=== PATIENT | female | born 1960 | race Caucasian/White ===

== ENCOUNTER 2017-05-30 10:28 | Day surgery (SDC) | payer BC ==
[~2017-05-30 10:28] MED LIST: Buffered Lidocaine 0.9% SYRIN* 5 ML/SYR SYRINGE INTRADERM ONE
[2017-05-30] MEDS ORDERED: Buffered Lidocaine 0.9% SYRIN* 5 ML/SYR SYRINGE ONE (10:29)
[2017-05-30] MEDS ORDERED: Bupivacaine 0.25% SDV* 30 ML ONE (10:48)
[2017-05-30] MEDS ORDERED: Lidocaine 1% MPF wEPI 200,000* 30 ML SDV ONE (10:48)
[2017-05-30] MEDS ORDERED: Bupivacaine 0.5% SDV PF* 10-30ML VIAL ONE ×2 (10:48→10:49)
[2017-05-30] MEDS ORDERED: ceFAZolin 2 GM PREMIX (*) 2 GM/50 ML BAG IVPB ONE (10:59)
[2017-05-30] MEDS ORDERED: Naloxone* 0.4 MG/ML 1 ML VIAL IV PRN (11:12)
[2017-05-30] MEDS ORDERED: Midazolam* 1 MG/ML 2 ML VIAL (2 MG) ONE (13:49)
[2017-05-30] MEDS ORDERED: fentaNYL* 50 MCG/ML 2 ML VIAL (100 MCG VIAL) ONE (13:49)
[2017-05-30] MEDS ORDERED: Lidocaine 2% PF * 5 ML VIAL ONE (14:22)
[2017-05-30] MEDS ORDERED: Propofol* 10 MG/ML 20 ML BTL IV PUSH ONE (14:22)
[2017-05-30] MEDS ORDERED: oxyCODONE/Acetamin 5/325 MG* TAB PO PRN (15:13)
[2017-05-30 15:26] VITALS: BP 124/77
--- NOTE | 2017-05-31 13:33 | OP ---
CC: Kinana Mcdaniel MD * DATE OF OPERATION: 05/30/17 - [facility] DATE OF : 56 SURGEON: Thong Aguilar MD TRIMMING INSPECTOR: KARINA Whitehead ANESTHESIOLOGIST: Daniel Alonzo DO ANESTHESIA: Local with MAC. PRE-OP DIAGNOSIS: Right inguinal hernia. POST-OP DIAGNOSIS: Right inguinal hernia. OPERATIVE PROCEDURE: Open repair of right inguinal hernia with mesh. ESTIMATED BLOOD LOSS: Minimal. IV FLUIDS: Crystalloids. SPECIMEN: None. DRAINS: None. COMPLICATIONS: None. COUNTS: Instrument, needle, and sponge counts were correct. DESCRIPTION OF PROCEDURE: The patient was brought to the operating room and placed on the table supine. Sequential compression devices were placed on both lower extremities. Intravenous sedation was administered. The patient was prepped and draped in the usual sterile fashion. Time-out was performed. Local anesthetic was infiltrated into the skin and soft tissue in the right groin. An oblique incision was created to divide the skin and subcutaneous tissues were divided with cautery. External oblique aponeurosis was identified and opened along the line of its fibers through the superficial ring. The round ligament was identified and this was inseparable from an indirect inguinal hernia sac. The ilioinguinal nerve was identified and preserved in lateral direction. ltimately, the sac was entered, however, could not be dissected free from the round ligament. Therefore, the round ligament was divided and it was tied off proximally and distally with 2-0 Vicryl suture. The repair was then performed with a polypropylene mesh patch, which was cut to fit the right inguinal canal, securing this with 2-0 Vicryl to the pubic tubercle, shelving edge of the inguinal ligament, and to the conjoint tendon with interrupted suture. The tail of the mesh was tucked beneath the external oblique laterally and this external oblique aponeurosis was closed with 2-0 Vicryl running. The ilioinguinal nerve was returned to its anatomic position, and after the external oblique aponeurosis was closed, Cassandra's was closed with 3-0 Vicryl in interrupted fashion. The skin was closed with 4-0 Monocryl in subcuticular fashion. Steri-Strips were applied with dressing. The patient tolerated the procedure well, was awakened and transferred to Recovery in stable condition. [id number]/[facility] #: [id number] REN
== END 2017-05-30 15:27 | disposition home or self-care (01) ==
LOC: OR 10:28
PROVIDERS: ATTEND Surgery
DX: K40.90 Unilateral inguinal hernia, without obstruction or gangrene, not specified as recurrent (principal)
CPT/HCPCS: C1781; J0690; J2001; J2250; J2704; J3010

== ENCOUNTER 2017-08-16 07:11 | Emergency (ER) | payer BC ==
--- OUTSIDE RECORDS SUMMARY | 2017-08-16 07:18 | XMS REPORT ---
:1960 External Reference #:[id number] Author Organization [employer] Address [address] [address] Phone [phone] Care Team Providers Name Role Phone Kianna Mcdaniel MD Primary Care Physician Unavailable Payers Type Date Identification Numbers Payment Provider Subscriber Commercial Policy Number: [id number] [facility] Thong Rogers PayID: [id number] [address] [place] [address] Problems Date Description Provider Status Onset: 07/26/2017 Localized, secondary osteoarthritis Naida Hernández M.D. 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 ETOH Use Drinks 1 Alcoholic Beverage Per Day Smoking Patient has never smoked Exercise Type/Frequency Exercises sporadically Allergies, Adverse Reactions, Alerts Date Description Reaction Status Severity Comments 01/20/2015 Morphine active nausea Medications Medication Date Status Form Strength Qnty SIG Indications Ordering Provider Lipoflavonoid Active Tablet 2 tabs Unknown 000 once daily Centrum Silver Active Tablets Adult 50 1 tab Unknown Adult 50+ 000 daily Krill Oil Active Capsules once a Unknown 000 day Osteobiflex Active Unknown 000 Ranitidine HCL 0 Hx 150mg twice a Unknown 000 day Nexium OTC 0 Hx daily Unknown 000 Calcium Magnesium 0 Hx daily Unknown 000 Glucosamine 0 Hx 1500mg Unknown Chondroitin 000 - daily 018 Metafolin/Methyl Hx B12/B6 Unknown 000 - one tab daily 018 Vitamin D 0 Hx Capsules 1000Unit 1 by Unknown (Cholecalciferol) 000 - mouth every 018 day Medications Administered in Office Medication Date Status Form Strength Qnty SIG Indications Ordering Provider Technetium TC Administered Injection Mike Garcia 99M 015 Brand, M.DMinerva Tetrofosmin, Per Unit Dose Up To 40 Millicuries Technetium TC Administered Injection Rosemary Sorenson, 99M 015 PA Tetrofosmin, Per Unit Dose Up To 40 Millicuries Depomedrol Administered Injection Dirk Sujit, 40MG 011 M.D. Vital Signs Date Vital Result Comment 08/11/2017 Height 63.5 inches 5'3.50" Weight 119.00 lb Heart Rate 68 /min BP Systolic Sitting 96 mmHg BP Diastolic Sitting 60 mmHg Respiratory Rate 16 /min Pain Level 5 BMI (Body Mass Index) 20.7 kg/m2 07/26/2017 Height 63.5 inches 5'3.50" Weight 117.00 lb Heart Rate 68 /min BP Systolic 116 mmHg BP Diastolic 70 mmHg Pain Level 7 BMI (Body Mass Index) 20.4 kg/m2 06/07/2017 Heart Rate 76 /min Respiratory Rate 16 /min Body Temperature 97.8 F 05/12/2017 Height 63 inches 5'3" Weight 115.00 lb Heart Rate 72 /min BP Systolic 98 mmHg BP Diastolic 62 mmHg Respiratory Rate 16 /min Body Temperature 97.3 F BMI (Body Mass Index) 20.4 kg/m2 01/24/2011 Height 63 inches 5'3" Weight 112.00 lb Heart Rate 66 /min BP Systolic 91 mmHg BP Diastolic 61 mmHg BMI (Body Mass Index) 19.8 kg/m2 Results Test Date Test Result H/L Range Note CBC Auto Diff 08/02/2017 White Blood Count 6.4 10^3/uL 3.5-10.8 Red Blood Count 4.38 10^6/uL 4.0-5.4 Hemoglobin 13.7 g/dL 12.0-16.0 Hematocrit 41 % 35-47 Mean Corpuscular Volume 94 fL 80-97 Mean Corpuscular Hemoglobin 31 pg 27-31 Mean Corpuscular HGB Conc 33 g/dL 31-36 Red Cell Distribution Width 14 % 10.5-15 Platelet Count 334 10^3/uL 150-450 Mean Platelet Volume 7.9 um3 7.4-10.4 Abs Neutrophils 3.1 10^3/uL 1.5-7.7 Abs Lymphocytes 2.8 10^3/uL 1.0-4.8 Abs Monocytes 0.4 10^3/uL 0-0.8 Abs Eosinophils 0.1 10^3/uL 0-0.6 Abs Basophils 0 10^3/uL 0-0.2 Abs Nucleated RBC 0 10^3/uL Granulocyte % 48.0 % 38-83 Lymphocyte % 43.9 % 25-47 Monocyte % 6.3 % 0-7 Eosinophil % 1.2 % 0-6 Basophil % 0.6 % 0-2 Nucleated Red Blood Cells % 0.1 Laboratory test finding 08/02/2017 C Reactive Protein < 1.00 mg/L &lt ; 5.00 1 Erythrocyte Sed Rate 5 mm/Hr 0-30 1 Acute inflammation: >10.00 Procedures Date CPT Code Description Status 05/30/2017 40461 Repair Hernia Inguinal > 5Yrs, Reducible Completed 05/30/2017 17768 Repair Hernia Inguinal > 5Yrs, Reducible Completed 01/23/2015 28071 Stress Test Completed 01/23/2015 83707 Myocardial Perfusion Imaging Tomographic (Spect) Completed Multiple Studies 01/23/2015 16046 Myocardial Perfusion Imaging Tomographic (Spect) Completed Multiple Studies 02/02/201193389 Inject/Drain Joint/Bursa Major Completed 01/24/2011 08481 Rad Exam; Both Knees, Standing Ap Completed 01/24/2011 18646 Rad Exam; Knee, Ap&L Completed Encounters Type Date Location Provider CPT E/M Dx Office Visit 07/26/2017 [facility] M.D. 66537 M17.31 9:00a [facility] M25.561 M25.461 Office Visit 05/12/2017 8:45a [facility] [place], [address] K40.90 Director Of Golf FACS Office Visit 02/02/2011 9:00a [facility] M.D. 29696 727.51 [facility] 727.43 716.96 Office Visit 01/24/2011 2:30p [facility] M.D. 88443 716.96 [facility].. 727.40 Plan of Care Future Appointment(s):08/22/2017 7:30 am - Clifton Wright PA-C at [facility].08/22/2017 7:30 am - KARINA Blair at [facility].08/22/2017 7:30 am - Naida Hernández M.D. at [facility].09/06/2017 10:30 am - Naida Hernández M.D. at [facility].08/11/2017 - Naida Hernández M.D.M17.31 Unilateral post- traumatic osteoarthritis, right kneeFollow up:Follow up: 10-14 days post opM25.561 Pain in right kneeM25.461 Effusion, right knee
--- OUTSIDE RECORDS SUMMARY | 2017-08-16 07:18 | XMS REPORT ---
:1960 External Reference #:[id number] Author Organization [employer] Address [address] [address] Phone [phone] Care Team Providers Name Role Phone Kianna Mcdaniel MD Primary Care Physician Unavailable Payers Type Date Identification Numbers Payment Provider Subscriber Commercial Policy Number: [id number] [facility] Thong Rogers PayID: [id number] [address] [place] [address] Problems Date Description Provider Status Onset: 07/26/2017 Localized, secondary osteoarthritis Naida Hernández M.D. 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 Vital Signs Date Vital Result Comment 07/26/2017 Height 63.5 inches 5'3.50" Weight 117.00 [...] BMI (Body Mass Index) 19.8 kg/m2 Results Description No Information Procedures Date CPT Code Description Status 05/30/2017 75114 Repair Hernia Inguinal > 5Yrs, Reducible Completed 05/30/2017 51213 Repair Hernia Inguinal > 5Yrs, Reducible Completed 01/23/2015 59668 Stress Test Completed 01/23/2015 93678 Myocardial Perfusion Imaging Tomographic (Spect) Completed Multiple Studies 01/23/2015 63411 Myocardial Perfusion Imaging Tomographic (Spect) Completed Multiple Studies 02/02/2011 Inject/Drain Joint/Bursa Major Completed 01/24/2011 06653 Rad Exam; Both Knees, Standing Ap Completed 01/24/2011 13528 Rad Exam; Knee, Ap&L Completed Encounters Type Date Location Provider CPT E/M Dx Office Visit 05/12/2017 [facility] [place], [address] K40.90 8:45a [employer] Worker FACS Office Visit 02/02/2011 [facility] M.D. 15720 727.51 9:00a [facility] 727.43 716.96 Office Visit 01/24/2011 2:30p [facility] M.D. 67734 716.96 [facility] 727.40 Plan of Care Future Appointment(s):09/06/2017 10:30 am - Naida Hernández M.D. at [facility]08/11/2017 8:30 am - Naida Hernández M.D. at [facility]07/26/2017 - Naida Hernández M.D.M25.561 Pain in right kneeNew Xrays:Knee 3 Views RTFollow up:Follow up: 10-14 days euhhsqM02.461 Effusion, right kneeM17.31 Unilateral post-traumatic osteoarthritis, right knee
[2017-08-16 07:24] VITALS: BP 109/72
[2017-08-16] MEDS ORDERED: Fluorescein Sod TOPICAL 0.6* 0.6 MG TEST OPHTHALMIC ONE (07:28)
--- NOTE | 2017-08-16 07:50 | UC ---
Eye Complaint HPI - HPI Summary HPI Summary: 57 yo female developed left eye fb sensation yesterday today awoke with mild eye discomfort and lids matted shut no longer has FB sensation no itch no URI symptoms no photophobia - History of Current Complaint Chief Complaint: UCEye Stated Complaint: EYE COMPLAINT Time Seen by Provider: 08/16/17 07:25 Hx Obtained From: Patient Onset/Duration: Gradual Onset, Lasting Hours Timing: Constant Severity Initially: Mild Severity Currently: Mild Pain Intensity: 3 Pain Scale Used: 0-10 Numeric Location of Injury: Conjunctiva Character: Dull Aggravating Factor(s): Nothing Associated Signs And Symptoms: Positive: Drainage (Purulent) - Allergies/Home Medications Allergies/Adverse Reactions: Allergies Allergy/AdvReac Type Severity Reaction Status Date / Time morphine AdvReac Mild Nausea And Verified 08/16/17 07:23 Vomiting PMH/Surg Hx/FS Hx/Imm Hx Previously Healthy: Yes - DJD - Surgical History Surgical History: Yes Surgery Procedure, Year, and Place: 1976 LEFT KNEE [place]. 1980 & 1981 RT KNEE [place]. 1987 & 1991 C-SECTIONS [place]. 2009 LEFT OSTEOTOMY, PLATE INSERTION [place] - Family History Known Family History: Positive: Hypertension, Other - Yes- HLD - Social History Alcohol Use: Daily Alcohol Amount: 1 DRINK Substance Use Type: None Smoking Status (MU): Never Smoked Tobacco Have You Smoked in the Last Year: No - Immunization History Most Recent Tetanus Shot: UTD Review of Systems Constitutional: Negative Skin: Negative Eyes: Eye Redness, Photophobia ENT: Negative Respiratory: Negative Cardiovascular: Negative Gastrointestinal: Negative Genitourinary: Negative Motor: Negative Neurovascular: Negative Musculoskeletal: Arthralgia Neurological: Negative Psychological: Negative All Other Systems Reviewed And Are Negative: Yes Physical Exam Triage Information Reviewed: Yes Appearance: Well-Appearing, No Pain Distress, Well-Nourished Vital Signs: Initial Vital Signs Temp 98.6 F 08/16/17 07:17 Pulse 65 08/16/17 07:17 Resp 18 08/16/17 07:17 BP 109/72 08/16/17 07:17 Pulse Ox 100 08/16/17 07:17 Vital Signs Reviewed: Yes Eyes: Positive: Conjunctiva Inflamed, Discharge, Other: - neg flourescein staining ENT: Positive: Hearing grossly normal, Uvula midline. Negative: Nasal congestion, Nasal drainage, Trismus, Muffled voice Neck: Positive: Supple, Nontender, No Lymphadenopathy Respiratory: Positive: Lungs clear, Normal breath sounds, No respiratory distress, No accessory muscle use Cardiovascular: Positive: RRR, No Murmur Musculoskeletal: Positive: ROM Intact, No Edema Neurological: Positive: Alert Psychological Exam: Normal Skin Exam: Normal Eye Complaint Course/Dx - Differential Dx/Diagnosis Provider Diagnoses: conjunctivitis (L) Discharge - Sign-Out/Discharge Documenting (check all that apply): Discharge - Discharge Plan Condition: Stable Disposition: HOME Prescriptions: Polymyx/Trimethoprim OPTH* [Polytrim OPHTH*] 1 - 2 drop BOTH EYES QID #1 btl Patient Education Materials: Conjunctivitis (ED) Referrals: Milton Guevara MD [Medical Doctor] - 2 Days (if needed) Kianna Mcdaniel MD [Primary Care Provider] - Additional Instructions: I suggest you also use ZADITOR eye drops (OTC) see senior procurement specialist if foreign body sensation returns or if you develop worsening eye discomfort - Billing Disposition and Condition Condition: STABLE Disposition: HOME
== END 2017-08-16 07:47 | disposition home or self-care (01) ==
LOC: UCEAST 07:11
DX: H10.32 Unspecified acute conjunctivitis, left eye (principal); Z88.5 Allergy status to narcotic agent
CPT/HCPCS: 99212; G0463

== ENCOUNTER 2017-08-22 05:56 | Inpatient (IN) | payer BC ==
--- NOTE | 2017-08-11 21:05 | HP ---
PREOPERATIVE HISTORY AND PHYSICAL: DATE OF SURGERY: 08/22/17 DATE OF OFFICE VISIT: 08/11/17 ATTENDING SURGEON: Naida Hernández MD * (DICTATED BY KARINA MCGILL) PROCEDURE: Right total knee replacement. CHIEF COMPLAINT: Right knee pain. HISTORY OF PRESENT ILLNESS: Ms. Rogers is a 57-year-old female who presents to clinic for right knee pain due to severe end-stage osteoarthritis. She has failed conservative measures and therefore agreed to undergo a right total knee replacement with Dr. Hernández on 08/22/17. PAST MEDICAL HISTORY: Osteoarthritis. PAST SURGICAL HISTORY: 1. Bilateral knee surgeries x4. 2. She had a right knee ACL reconstruction. 3. Left knee ACL reconstruction. 4. Right knee partial meniscectomy. 5. Left tibial tubercle osteotomy in 2009. 6. x2. 7. Basal cell carcinoma excision. 8. Two hiatal hernia repairs. Patient denies prior complications with anesthesia. MEDICATIONS: 1. Lipoflavonoid 2 tabs once daily. 2. Centrum Silver 50+ one tab daily. 3. Krill Oil once daily. 4. Osteo Bi-Flex 1 daily. ALLERGIES: MORPHINE. FAMILY HISTORY: Positive for parental heart disease and mom with Alzheimer's. She denies family history of DVT or PE. SOCIAL HISTORY: She lives with her . 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 She denies tobacco use or illegal drug use. She reports occasional alcohol consumption. She is right-hand dominant. She is normally an independent ambulator. REVIEW OF SYSTEMS: A 14-point review of systems was reviewed with the patient, positive for current, complaint otherwise negative. Denies fever chills, chest pain, shortness of breath, history of bleeding disorder, history of DVT or PE, history of hep C or HIV. PHYSICAL EXAMINATION GENERAL: Well-developed, well-nourished, 57-year-old female, in no acute distress. VITAL SIGNS: Height 63.5, weight 119, pulse 68, blood pressure 96/60, respiratory rate 16, BMI 20.7. HEENT: Normocephalic, atraumatic, PERRLA. Throat clear. NECK: Supple. PULMONARY: Lungs clear to auscultation bilaterally. No wheezing, rhonchi, or rales. CARDIO: Regular rate and rhythm, S1, S2. No murmurs, gallops, or rubs. No edema. ABDOMEN: Positive bowel sounds. Soft, nontender. NEUROLOGICAL: Alert and oriented x3. Cranial nerves grossly intact. Sensation intact to light touch. MUSCULOSKELETAL: Right lower extremity skin is intact. No abrasions or open wounds. No palpable masses or lymph nodes. Moderate effusion of the knee. Range of motion is 5 to 140. Patellofemoral crepitus with range of motion. Varus and valgus stress shows mild MCL incompetence. No hyperreflexia. +5/5 strength to dorsiflexion and plantar flexion, +2 DP pulse. Sensation intact to light touch distally. STUDIES: Multi-view x-rays of the right knee revealed tricompartmental end- stage degenerative osteoarthritis with [id number] contact medial and lateral compartment with joint space narrowing, osteophyte formation and subchondral sclerosis in the tricompartments. IMPRESSION: Right knee end-stage osteoarthritis. PLAN/RECOMMENDATIONS: The patient is scheduled to undergo a right total knee replacement with Dr. Hernández on 08/22/17. She will return to office 10 to 14 days postop for followup and suture removal. Percocet will be used for postop pain management. KARINA MCGILL [id number]/[facility] #: [id number] MTDBilly
[~2017-08-22 05:56] MED LIST changes: +DiMENhydriNATE IV* 50 MG/ML VIAL IV PUSH PRN; +HYDROmorphone INJ* 1 MG/ML CARPUJECT SYRINGE IV PRN; +Naloxone* 0.4 MG/ML 1 ML VIAL IV PRN; +PROCHLORPERAZINE INJ 5 MG/ML 2 ML VIAL IV PRN; +fentaNYL* 50 MCG/ML 2 ML VIAL (100 MCG VIAL) IV PRN; +oxyCODONE/Acetamin 5/325 MG* TAB PO PRN
[2017-08-22] MEDS ORDERED: Famotidine IV* 10 MG/ML 2 ML (20 mg) IV ONE (06:00)
[2017-08-22] MEDS ORDERED: Scopolamine 1.5 mg* PATCH TRANSDERM ONE (06:00)
[2017-08-22] MEDS ORDERED: Gabapentin CAP(*) 300 MG PO ONE (06:00)
[2017-08-22] MEDS ORDERED: Gabapentin CAP(*) 300 MG ONE (06:08)
[2017-08-22] MEDS ORDERED: Scopolamine 1.5 mg* PATCH ONE (06:08)
[2017-08-22] MEDS ORDERED: ceFAZolin 2 GM PREMIX (*) 2 GM/50 ML BAG IVPB ONE (06:08)
[2017-08-22] MEDS ORDERED: Famotidine TAB* 20 MG ONE (07:00)
[2017-08-22] MEDS ORDERED: Midazolam* 1 MG/ML 10 ML VIAL (10 MG) ONE (07:06)
[2017-08-22] MEDS ORDERED: fentaNYL* 50 MCG/ML 2 ML VIAL (100 MCG VIAL) ONE (07:06)
[2017-08-22] MEDS ORDERED: Bupivacaine 0.5%* 50 ML VIAL ONE ×2 (07:08→09:13)
[2017-08-22] MEDS ORDERED: Bupivacaine-MPF SPINAL* 7.5 MG/2 ML AMP ONE (07:09)
[2017-08-22] MEDS ORDERED: Bisacodyl SUPP* 10 MG SUPP PR PRN (07:33)
[2017-08-22] MEDS ORDERED: Magnesium Hydroxide LIQ* 30 ML UDC PO PRN (07:33)
[2017-08-22] MEDS ORDERED: Cyclobenzaprine TAB* 10 MG PO PRN (07:33)
[2017-08-22] MEDS ORDERED: Polyethylene Glycol 3350* 17 GM PACKET PO PRN (07:33)
[2017-08-22] MEDS ORDERED: Acetaminophen TAB* 325 MG PO PRN (07:33)
[2017-08-22] MEDS ORDERED: Ondansetron TAB* 4 MG PO PRN (07:33)
[2017-08-22] MEDS ORDERED: oxyCODONE/Acetamin 5/325 MG* TAB PO PRN (07:33)
[2017-08-22] MEDS ORDERED: diPHENhydraMINE IV* 50 MG/ML 1 ml VIAL (BENADRYL) IV PRN (07:33)
[2017-08-22] MEDS ORDERED: HYDROmorphone INJ* 2 MG/ML CARPUJECT SYRINGE IV SLOW PU PRN (07:36)
[2017-08-22] MEDS ORDERED: Phenylephrine INJ* 10 MG/ML 1 ML VIAL (10 MG) ONE (08:59)
[2017-08-22] MEDS ORDERED: Ondansetron INJ* 2 MG/ML VIAL ONE (08:59)
[2017-08-22] MEDS ORDERED: Propofol* 500 MG/50 ML BTL ONE (08:59)
[2017-08-22] MEDS ORDERED: Dexamethasone IV* 4 MG/ML 1 ML (4 MG) ONE (08:59)
[2017-08-22] MEDS ORDERED: Lidocaine 2% PF * 5 ML VIAL ONE (08:59)
[2017-08-22] MEDS ORDERED: Bupivacaine 0.25% SDV* 30 ML ONE (08:59)
[2017-08-22] MEDS ORDERED: EPHEDrine (Pressors)* 50 MG/ML VIAL ONE (09:13)
--- NOTE | 2017-08-22 12:39 | RAD ---
HISTORY: Status post right knee arthroplasty COMPARISONS: July 26, 2017 VIEWS: 2, Frontal and lateral views of the right knee FINDINGS: BONE DENSITY: Normal. BONES: The patient is status post right knee arthroplasty. There is no hardware failure or osteolysis. JOINTS: The patient is status post right knee arthroplasty. ALIGNMENT: There is no dislocation. SOFT TISSUES: Unremarkable. OTHER FINDINGS: There is post surgical change to the soft tissue. IMPRESSION: STATUS POST RIGHT KNEE ARTHROPLASTY
[2017-08-22] MEDS: Polymyx/Trimethoprim OPTH* 10 ML BTL BOTH EYES SCH ×3 (15:28→20:25)
[2017-08-22] MEDS: Docusate CAP* 100 MG PO SCH ×2 (15:28→22:30)
[2017-08-22] MEDS: Magnesium Hydroxide LIQ* 30 ML UDC PO SCH ×2 (15:28→22:30)
[2017-08-22] MEDS: oxyCODONE/Acetamin 5/325 MG* TAB PO PRN ×2 (16:09→20:23)
[2017-08-22] MEDS: ceFAZolin 1 GM in Dextrose (*) 1 GM/50 ML BAG IVPB SCH (16:51)
[2017-08-22] MEDS: Ondansetron INJ* 2 MG/ML VIAL IV PRN (16:59)
[2017-08-22] MEDS ORDERED: Warfarin TAB(*) 6 MG PO ONE (17:00)
[2017-08-22] MEDS: oxyCODONE TAB* 5 MG TAB PO PRN (22:32)
[2017-08-23] MEDS: ceFAZolin 1 GM in Dextrose (*) 1 GM/50 ML BAG IVPB SCH ×2 (00:46→08:25)
[2017-08-23] MEDS: oxyCODONE/Acetamin 5/325 MG* TAB PO PRN ×3 (02:36→16:58)
--- NOTE | 2017-08-23 03:38 | OP ---
DATE OF OPERATION: 08/22/17 - ROOM #341 DATE OF : 56 ATTENDING SURGEON: Naida Hernández MD JOURNEYMAN MOLDER: KARINA Nguyen. Ms. Salmeron did help throughout the procedure with preparation of the leg, wound retraction, manipulation of the knee, and wound closure. ANESTHESIOLOGIST: Dr. Easley. ANESTHESIA: Spinal. PRE-OP DIAGNOSIS: Severe end-stage degenerative osteoarthritis of the right knee joint. POST-OP DIAGNOSIS: Severe end-stage degenerative osteoarthritis of the right knee joint. OPERATIVE PROCEDURE: Right total knee arthroplasty. TOURNIQUET TIME: 58 minutes. COMPLICATIONS: None. SPECIMEN: Multiple culture swabs sent to Microbiology. Bone and cartilage from the right knee joint sent to Pathology. HARDWARE USED: This is a cemented Castillo and Nephew total knee arthroplasty hardware. Two packages of Simplex bone cement were used. For the femur, an Oxinium size 5 narrow posterior stabilized Legion femoral component. For the tibia, a right size 3 tibial base plate Mirta II. For the insert, an 11-mm posterior stabilized articular insert, size 3/4. For the patella, a 32-mm 3- peg all poly patella. BRIEF HISTORY AND INDICATIONS: Ms. Rogers is a 57-year-old female with years of increasingly severe right knee pain. She failed conservative treatment with anti- inflammatories, pain medication, intra-articular injections , and physical therapy. Due to continued pain and decreased quality of life, she elected to undergo right total knee arthroplasty. Radiographs confirmed [id number] arthritis. Informed consent was obtained from the patient. She understood the risks of the surgery included, but were not limited to bleeding, infection, damage to nearby structures, continued pain, need for further surgery , intraoperative fracture, nerve palsy, hardware failure or loosening, knee stiffness, loss of motion, stroke, heart attack, blood clot, and . She wished to proceed. INTRAOPERATIVE FINDINGS: Intraoperatively, the patient was noted to have some MCL laxity that was much improved by bringing the knee out to length and improving the deformity. She has full thickness cartilage loss in all four compartments. She was noted to have osteopenia throughout the case. DESCRIPTION OF PROCEDURE: Ms. Rogers was identified in the preanesthesia unit. Her right lower extremity was marked as the correct operative side. Informed consent was signed and placed in the chart. The patient was taken to the operating room and placed under spinal anesthesia. A Marshall catheter was placed. Tourniquet was placed on the right side. Right lower extremity was prepped and draped in the usual sterile fashion. Preop time-out was made to correctly identify the patient's side and site. Appropriate perioperative antibiotics were given within 1 hour of incision. Tourniquet was inflated and total tourniquet time for this procedure was 58 minutes. The patient's prior incision was used and curved medially at its mid portion. Sharp dissection down to the extensor mechanism was performed. A medial parapatellar arthrotomy was performed. The patella was subluxed laterally. Electrocautery was used to subperiosteally elevate the soft tissue off the superomedial tibia to the mid sagittal plane. The knee was flexed up. The anterior horn of the lateral meniscus and ACL were sharply released. A drill was used to enter the distal femur. Intramedullary distal femoral cutting guide was pinned on the distal femur. Oscillating saw was used to make the distal femoral cut. Next, the external rotation guide was pinned on the distal femur and the distal femur was sized to a size 5. Size 5 multi-cutting jig was pinned on the distal femur. Oscillating saw was used to make the 4 chamfer cuts. The PCL was completely released. The tibia was subluxed anteriorly. Extramedullary tibial cutting guide was pinned on the proximal tibia. Oscillating saw was used to make the proximal tibial cut. The knee was brought out into full extension. The bone was carefully removed. Spacer block had good fit with both medial and lateral ligaments, well balanced. The MCL stability was excellent. The knee was flexed up. Lamina polymer engineer was placed both medially and laterally. Any remaining meniscus was carefully removed using electrocautery. Any posterior osteophytes were removed with a curved osteotome. Tibial tray and drop mason were placed to once again confirmed satisfactory tibial cut and this was confirmed. A right size 5 narrow femoral trial was impacted on to the distal femur and had good fit. The box for the posterior stabilized implant was prepared using a reamer and box cut osteotome. Size 3 tibial tray trial with an 11-mm insert trial was placed and the knee was taken through a range of motion. The knee had full extension to 130 degrees of flexion with good patellofemoral tracking. There was good medial and lateral ligamentous stability. The patella was everted. A 9-mm of patellar bone and cartilage were carefully removed using an oscillating saw. Patella was sized to a size 32. Three peg holes were drilled through the size 32 guide. A 32 trial patella was placed and the knee was taken through a range of motion. There was satisfactory patellofemoral tracking. All trials were carefully removed. Tibia was subluxed anteriorly and sized to a size 3. Proximal tibia was prepared using a size 3 keel punch. All bony cut surfaces were copiously irrigated with sterile saline and dried. Final implants were cemented into place starting with the tibia followed by the femur and last the patella. An 11-mm insert trial was placed while the knee was brought out into full extension. Tourniquet was turned down at 58 minutes. The knee was copiously irrigated with sterile saline. Electrocautery was used to obtain meticulous hemostasis. Once the cement had fully cured, the insert trial was removed. Any excess cement was removed from around the capsule and hardware. Final insert chosen was an 11-mm posterior stabilized articular insert size 3/4. This was locked into position on the tibial tray. Stability of the insert was checked and rechecked and noted to be stable. The extensor mechanism was closed using interrupted #1 Vicryls over a medium Hemovac drain. The rest of the incision was closed in a layered fashion using 0 and 2-0 Vicryls. Skin was closed using running 3-0 nylon suture. Sterile Xeroform, 4x4s, and Webril were used to cover the incision. Emiliano wrap and cold pack were placed over this. The patient's anesthesia was reversed without difficulty. She was taken to the PACU in stable condition. Intended weightbearing will be weightbearing as tolerated. Intended DVT prophylaxis will be Coumadin with a Lovenox bridge. [id number]/[facility] #: [id number] REN
[2017-08-23] MEDS: oxyCODONE TAB* 5 MG TAB PO PRN ×2 (07:11→13:53)
[2017-08-23] MEDS: Ondansetron INJ* 2 MG/ML VIAL IV PRN (08:23)
[2017-08-23] MEDS: Magnesium Hydroxide LIQ* 30 ML UDC PO SCH ×2 (08:26→20:15)
[2017-08-23] MEDS: Docusate CAP* 100 MG PO SCH ×2 (08:26→20:13)
[2017-08-23] MEDS: Polymyx/Trimethoprim OPTH* 10 ML BTL BOTH EYES SCH ×4 (08:26→20:08)
[2017-08-23 08:27] LABS: Hematocrit 33 % (35-47); Hemoglobin 11.2 g/dl (12.0-16.0); Platelet Count 268 10^3/ul (150-450)
[2017-08-23 08:32] LABS: INR 1.09 (0.77-1.02)
[2017-08-23 08:44] LABS: EGFR Non-African American 90.1 (>60)
--- NOTE | 2017-08-23 10:15 | PN ---
Progress Note - Progress Note Date of Service: 08/23/17 SOAP: Subjective: []Patient seen at bedside. Right knee pain tolerable. Denies CP, SOB, dizziness , leg numbness. She feels nauseous and has been vomiting though has been able to tolerate jello and tea, feeling a bit better now. At baseline BP reportedly runs 90/60. Objective: [] Vital Signs Temp 98.0 F 08/23/17 07:28 Pulse 67 08/23/17 07:28 Resp 16 08/23/17 08:00 BP 102/61 08/23/17 07:28 Pulse Ox 100 08/23/17 08:00 Intake & Output 08/22/17 08/23/17 08/23/17 18:59 06:59 18:59 Intake Total 2494 1830 120 Output Total 1300 750 100 Balance 1194 1080 20 Intake: IV Fluids 2200 1030 ABX - CEFAZOLIN 53 LR 2200 977 IVPB 54 ABX - CEFAZOLIN 54 Oral 240 800 120 Output: Urine 0 Marshall 1100 650 Emesis 200 100 100 Other: # Bowel Movements 0 Estimated Blood Loss 250 Comment Laboratory Last Values Hgb 11.2 g/dl (12.0-16.0) L 08/23/17 07:58 Hct 33 % (35-47) L 08/23/17 07:58 Plt Count 268 10^3/ul (150-450) 08/23/17 07:58 MPV 8.0 um3 (7.4-10.4) 08/23/17 07:58 INR (Anticoag Therapy) 1.09 (0.77-1.02) H 08/23/17 07:58 Sodium 135 mmol/L (139-145) L 08/23/17 07:58 Potassium 4.0 mmol/L (3.5-5.0) 08/23/17 07:58 Chloride 102 mmol/L (101-111) 08/23/17 07:58 Carbon Dioxide 28 mmol/L (22-32) 08/23/17 07:58 Anion Gap 5 mmol/L (2-11) 08/23/17 07:58 BUN 17 mg/dL (6-24) 08/23/17 07:58 Creatinine 0.67 mg/dL (0.51-0.95) 08/23/17 07:58 Est GFR ( Amer) 115.9 (>60) 08/23/17 07:58 Est GFR (Non-Af Amer) 90.1 (>60) 08/23/17 07:58 BUN/Creatinine Ratio 25.4 (8-20) H 08/23/17 07:58 Glucose 117 mg/dL (70-100) H 08/23/17 07:58 Calcium 8.7 mg/dL (8.6-10.3) 08/23/17 07:58 General: OOB in chair. Well appearing, NAD RLE: Knee dressing CDI aside from mild dried blood on anterior aspect, drain pulled by Dr Hernández this morning without complication. DF/PF intact. DP 2+. Sensation intact distally. BL LE: Calves supple and nontender without erythema, edema or palpable cords. Assessment: []POD 1 s/p right total knee arthroplasty, Dr Hernández Plan: []WBAT PT/OT Lovenox, coumadin 4 mg today Continue PO intake as much as tolerated. Call if nausea does not resolve
[2017-08-23] MEDS ORDERED: Enoxaparin(*) 30 MG/0.3 ML SYR SUBCUT SCH (12:00)
[2017-08-23] MEDS ORDERED: Warfarin TAB(*) 4 MG PO ONE (17:00)
[2017-08-24 05:45] LABS: Hematocrit 33 % (35-47); Hemoglobin 11.1 g/dl (12.0-16.0); Mean Platelet Volume 8.2 um3 (7.4-10.4); Platelet Count 255 10^3/ul (150-450)
[2017-08-24 05:52] LABS: INR 1.48 (0.77-1.02)
[2017-08-24 08:14] VITALS: BP 153/60
[2017-08-24] MEDS: Docusate CAP* 100 MG PO SCH (08:16)
[2017-08-24] MEDS: Magnesium Hydroxide LIQ* 30 ML UDC PO SCH (08:16)
[2017-08-24] MEDS: Polymyx/Trimethoprim OPTH* 10 ML BTL BOTH EYES SCH (08:16)
--- NOTE | 2017-08-24 09:08 | PN ---
Progress Note - Progress Note Date of Service: 08/24/17 SOAP: Subjective: []Patient seen at bedside. She is feeling better this morning without nausea or vomiting. Last episode of emesis reported as 9 pm last night. Her right knee pain is tolerable today. Denies CP, SOB, dizziness, nausea or vomiting. Objective: [] Vital Signs Temp 98.1 F 08/24/17 07:38 Pulse 83 08/24/17 07:38 Resp 16 08/24/17 07:38 BP 153/60 08/24/17 07:38 Pulse Ox 100 08/24/17 07:38 Intake & Output 08/23/17 08/24/17 08/24/17 18:59 06:59 18:59 Intake Total 1989 1210 300 Output Total 1100 1850 Balance 889 -640 300 Intake: IV Fluids 1569 ABX - CEFAZOLIN 106 LR 1463 Oral 420 1210 300 Output: Urine 1000 1850 Emesis 100 Laboratory Last Values Hgb 11.1 g/dl (12.0-16.0) L 08/24/17 05:15 Hct 33 % (35-47) L 08/24/17 05:15 Plt Count 255 10^3/ul (150-450) 08/24/17 05:15 MPV 8.2 um3 (7.4-10.4) 08/24/17 05:15 INR (Anticoag Therapy) 1.48 (0.77-1.02) H 08/24/17 05:15 Sodium 135 mmol/L (139-145) L 08/23/17 07:58 Potassium 4.0 mmol/L (3.5-5.0) 08/23/17 07:58 Chloride 102 mmol/L (101-111) 08/23/17 07:58 Carbon Dioxide 28 mmol/L (22-32) 08/23/17 07:58 Anion Gap 5 mmol/L (2-11) 08/23/17 07:58 BUN 17 mg/dL (6-24) 08/23/17 07:58 Creatinine 0.67 mg/dL (0.51-0.95) 08/23/17 07:58 Est GFR ( Amer) 115.9 (>60) 08/23/17 07:58 Est GFR (Non-Af Amer) 90.1 (>60) 08/23/17 07:58 BUN/Creatinine Ratio 25.4 (8-20) H 08/23/17 07:58 Glucose 117 mg/dL (70-100) H 08/23/17 07:58 Calcium 8.7 mg/dL (8.6-10.3) 08/23/17 07:58 General: OOB in chair. Well appearing, NAD RLE: Knee dressing changed, incision CDI without surrounding erythema or discharge. DF/PF intact. DP 2+. Sensation intact distally. BL LE: Calves supple and nontender without erythema, edema or palpable cords. Assessment: []POD 2 s/p right total knee arthroplasty, Dr Hernández Plan: []WBAT PT/OT Lovenox, coumadin 4 mg today DC today Desires DC home today
--- NOTE | 2017-08-24 22:59 | DS ---
DISCHARGE SUMMARY: DATE OF ADMISSION AND DATE OF SURGERY: 08/22/17 DATE OF DISCHARGE: 08/24/17 ATTENDING SURGEON: Naida Hernández MD * (dictated by KARINA Mott) SOURCER: KARINA Nguyen PREOPERATIVE DIAGNOSIS: Severe end-stage degenerative osteoarthritis of the right knee joint. OPERATIVE PROCEDURE: Right total knee arthroplasty. HISTORY: Ms. Rogers is a 57-year-old female with years of increasingly severe right knee pain. She failed conservative treatment with antiinflammatories, pain medication, intraarticular injections, and physical therapy. Due to continued pain and decreased quality of life, she elected to undergo a right total knee arthroplasty. HOSPITAL COURSE: Ms. Rogers was admitted to [facility] on . She underwent a right total knee arthroplasty without complication. She recovered briefly in the PACU and then was transferred to the Short Stay Surgical Unit in stable condition. She was seen post op day 1, vital signs including temp 98.0, pulse 67, respiratory rate 16, blood pressure 102/61, pulse ox 100%, hemoglobin 11.2, hematocrit 33, INR 1.09. The patient was well appearing, in no acute distress. Knee dressing was clean, dry, and intact. Drain was pulled by Dr. Hernández this morning without complication. Dorsiflexion and plantarflexion intact. She was feeling very nauseous and vomiting throughout the day, which resulted in her staying overnight into postop day 2. Postop day 2, patient was well appearing, in no acute distress. Vital signs included temperature 98.1, pulse 83, respiratory rate 16, blood pressure 153/60 , and pulse ox 100%. Labs; hemoglobin 11.1, hematocrit 33, INR 1.48. General; patient is well appearing, in no acute distress. Right lower extremity knee dressing was changed. Incision was clean, dry, and intact without surrounding erythema or discharge. Dorsi-flexion, plantarflexion intact. Dorsalis pedis pulse 2+. Sensation intact distally bilateral lower extremities. Calves supple and nontender without erythema, edema, or palpable cords. Patient was symptomatically and orthopedically stable for discharge home. DISCHARGE MEDICATIONS: Medications resumed at home include: 1. Omea-3. 2. Calcium tablet. 3. B complex tablet. 4. Lipoflavonoid tablet 5. Turmeric capsule. 6. Polytrim ophthalmic 1 to 2 drops both eyes 4 times a day. New medications at home include: 1. Acetaminophen 650 mg p.o. q.4 hours p.r.n., max daily dose of 4000 mg from all sources. 2. Docusate 100 mg p.o. b.i.d. p.r.n. 3. Percocet 5/325, 1 to 2 tabs every 4 to 6 hours p.r.n., max daily dose of 10. 4. Morphine 2 mg tabs, 1 to 3 tabs daily, dosing depending on INR draws. DISCHARGE INSTRUCTIONS: The patient will be weightbearing as tolerated. She may shower on postop day 3. She will not submerge the wound. She will consume a regular diet. She will continue physical therapy and occupational therapy exercises. Visiting home nurse to do wound checks as well as INR draws for blood work on Monday and . Coumadin dosing will include 08/24/17, take 4 mg; 08/25/17 through 08/27/17, take 2 mg daily; 08/28/17, recheck INR for new dosing instructions. Pain control with Percocet 5/325, 1 to 2 tabs by mouth every 4 to 6 hours as needed for pain, max daily dose of 10 tabs per day. Follow up with Dr. Hernández within 10 to 14 days. Call for an appointment. Medications were sent to [facility] on [facility] in [place]. KARINA GAMEZ [id number]/[facility] #: [id number] [facility]PITALBilly
[2017-08-25] MEDS ORDERED: Scopolamine PATCH Remove* 1 NOTE MISC PATCH OFF ONE (06:00)
== END 2017-08-24 10:30 | disposition home health service (06) | DRG 302 ==
LOC: OR 05:56 → SSU 12:07 → OBSVTOIN 08-23 14:27
PROVIDERS: ADMIT Orthopaedic Surgery Adult Reconstructive Orthopaedic Surgery; ATTEND Orthopaedic Surgery Adult Reconstructive Orthopaedic Surgery
PROC: 0SRC069 Replacement of Right Knee Joint with Oxidized Zirconium on Polyethylene Synthetic Substitute, Cemented, Open Approach (ICD-10-PCS; principal; 2017-08-23)
DX: M17.31 Unilateral post-traumatic osteoarthritis, right knee (principal); M25.761 Osteophyte, right knee; M25.461 Effusion, right knee; M23.8X1 Other internal derangements of right knee; M85.861 Other specified disorders of bone density and structure, right lower leg; Z88.5 Allergy status to narcotic agent; Z82.49 Family history of ischemic heart disease and other diseases of the circulatory system; Z81.8 Family history of other mental and behavioral disorders; Z72.89 Other problems related to lifestyle; Z80.0 Family history of malignant neoplasm of digestive organs; R11.2 Nausea with vomiting, unspecified
CPT/HCPCS: 36415; 80048; 85014; 85018; 85049; 85610; 87070; 87073; 87205; A9270-GY; G0378; G8978-GP-CI; G8978-GP-CJ; G8979-GP-CI; G8980-GP-CI; J0690; J1100; J1650; J2250; J2405; J2704; J3010

== ENCOUNTER 2018-01-12 08:38 | Emergency (ER) | payer BC ==
[2018-01-12 08:49] VITALS: BP 119/66
--- NOTE | 2018-01-12 09:25 | RAD ---
INDICATION: Chest pain and cough for 2 days. Asthma. COMPARISON: August 11, 2017 TECHNIQUE: Dual energy PA and routine lateral views of the chest were obtained. REPORT: Elevated lung volumes and both diffuse mild prominence of the interstitial markings and patchy rarefaction of the mid to upper lung zone interstitial markings. No focal pulmonary lesion, compelling alveolar consolidation, pleural effusion, pneumothorax. The heart, pulmonary vasculature, and mediastinal contours are unremarkable. Mild S-shaped curve of the spine convex to the RIGHT at the mid thoracic spine and to the LEFT at the thoracic lumbar junction without change. IMPRESSION: #. Stigmata of obstructive lung disease. No acute pulmonary or cardiac process evident.
--- NOTE | 2018-01-12 09:50 | UC ---
Respiratory Complaint HPI - HPI Summary HPI Summary: ONSET OF HARSH, NONPRODUCTIVE COUGH LAST NIGHT. NO FEVER, CONGESTION, SORE THROAT OR EAR PAIN. NO NAUSEA/VOMITING. - History of Current Complaint Chief Complaint: UCRespiratory Stated Complaint: COUGH Time Seen by Provider: 01/12/18 08:48 Hx Obtained From: Patient Onset/Duration: Gradual Onset, Lasting Days - 1 DAY, Still Present Timing: Constant Severity Initially: Moderate Severity Currently: Moderate Pain Intensity: 8 Pain Scale Used: 0-10 Numeric Character: Cough: Nonproductive Aggravating Factors: Nothing Alleviating Factors: Nothing Associated Signs And Symptoms: Positive: URI. Negative: Dyspnea, Fever, Pleuritic Chest Pain, Wheezing, Nasal Congestion - Allergies/Home Medications Allergies/Adverse Reactions: Allergies Allergy/AdvReac Type Severity Reaction Status Date / Time morphine AdvReac Mild Nausea And Verified 08/22/17 06:21 Vomiting PMH/Surg Hx/FS Hx/Imm Hx Previously Healthy: Yes - Surgical History Surgical History: Yes Surgery Procedure, Year, and Place: 1976 LEFT KNEE [place]. 1980 & 1981 RT KNEE [place]. 1987 & 1991 C-SECTIONS [place]. 2009 LEFT OSTEOTOMY, PLATE INSERTION [place] - Family History Known Family History: Positive: Hypertension, Other - Yes- HLD - Social History Alcohol Use: Daily Alcohol Amount: 1 DRINK Substance Use Type: None Smoking Status (MU): Never Smoked Tobacco Have You Smoked in the Last Year: No - Immunization History Most Recent Tetanus Shot: UTD Review of Systems Constitutional: Negative ENT: Negative Respiratory: Cough Cardiovascular: Negative Gastrointestinal: Negative All Other Systems Reviewed And Are Negative: Yes Physical Exam Triage Information Reviewed: Yes Appearance: Well-Appearing, No Pain Distress, Well-Nourished Vital Signs: Initial Vital Signs Temp 97.4 F 01/12/18 08:44 Pulse 57 01/12/18 08:44 Resp 20 01/12/18 08:44 BP 119/66 01/12/18 08:44 Pulse Ox 100 01/12/18 08:44 Vital Signs Reviewed: Yes Eyes: Positive: Conjunctiva Clear ENT: Positive: Hearing grossly normal, Pharynx normal, TMs normal Neck: Positive: Supple, Nontender, No Lymphadenopathy Respiratory Exam: Normal Cardiovascular Exam: Normal Abdomen Description: Positive: Soft Musculoskeletal: Positive: No Edema Neurological: Positive: Alert Psychological: Positive: Age Appropriate Behavior Skin: Negative: rashes UC Diagnostic Evaluation - Laboratory O2 Sat by Pulse Oximetry: 100 - Radiology Xray Interpretation: No Acute Changes - STIGMATA OF COPD BUT NO ACUTE DISEASE Radiology Interpretation Completed By: Radiologist Respiratory Course/Dx - Differential Dx/Diagnosis Provider Diagnoses: ACUTE URI Discharge - Sign-Out/Discharge Documenting (check all that apply): Patient Departure All imaging exams completed and their final reports reviewed: Yes - Discharge Plan Condition: Stable Disposition: HOME Prescriptions: Albuterol HFA INHALER* [Ventolin HFA Inhaler*] 2 puff INH Q4H PRN #1 mdi PRN Reason: Shortness Of Breath Patient Education Materials: Upper Respiratory Infection (ED) Referrals: Kianna Mcdaniel MD [Primary Care Provider] - If Needed Additional Instructions: X-RAY TODAY WITH SOME STIGMATA OF COPD BUT NO ACUTE PROCESS. YOUR SYMPTOMS ARE LIKELY VIRALLY MEDIATED AND SHOULD RESOLVE ON THEIR OWN WITH TIME. NO INDICATION FOR ANTIBIOTICS AT PRESENT. REST, HYDRATE, OTC MEDS NEEDED. WILL TREAT WITH ALBUTEROL INHALER TO HELP WITH AIRWAY INFLAMMATION. SEEK FOLLOW-UP IF YOU ARE NOT IMPROVING OVER THE NEXT 1-2 WEEKS. - Billing Disposition and Condition Condition: STABLE Disposition: Home
== END 2018-01-12 09:50 | disposition home or self-care (01) ==
LOC: UCEAST 08:38
DX: J06.9 Acute upper respiratory infection, unspecified (principal); R21 Rash and other nonspecific skin eruption
CPT/HCPCS: 71046; 99212; G0463

== ENCOUNTER 2018-10-20 17:42 | Emergency (ER) | payer BC ==
[2018-10-20 17:58] VITALS: BP 115/77
[2018-10-20] MEDS ORDERED: Tetan/Diph/Pertus SYR(Tdap)* 0.5 ML SYR(BOOSTRIX) use SYR IM ONE (18:09)
[2018-10-20] MEDS ORDERED: Bupivacaine 0.25% SDV PF* 10 ML VIAL INJ ONE (18:10)
[2018-10-20] MEDS ORDERED: Cephalexin CAP* 500 MG PO ONE (18:55)
--- NOTE | 2018-10-20 18:57 | UC ---
Laceration HPI - HPI Summary HPI Summary: cut pad of left finger on sewing trimmer-30 minutes prior to arrival---also has a small v shaped laceration on4th finger----Index finger is irregular shaped with gapping tissue - History Of Current Complaint Chief Complaint: UCLaceration Stated Complaint: HAND LACERATION Time Seen by Provider: 10/20/18 18:09 Hx Obtained From: Patient Laceration Location: Finger - left index and ring finger Mechanism Of Injury: Sharp Trauma Onset/Duration: Sudden Onset Pain Intensity: 3 Pain Scale Used: 0-10 Numeric Aggravating Factors: Nothing - Allergies/Home Medications Allergies/Adverse Reactions: Allergies Allergy/AdvReac Type Severity Reaction Status Date / Time morphine AdvReac Mild Nausea And Verified 10/20/18 17:58 Vomiting fentanyl AdvReac Nausea And Verified 10/20/18 17:58 Vomiting Home Medications: Home Medications Glucosam/Chondr/Collagn/Hyalur [Glucosamine & Chondroitin Cap] 1 tab PO DAILY [History Confirmed 10/20/18] PMH/Surg Hx/FS Hx/Imm Hx Previously Healthy: Yes - Surgical History Surgical History: Yes Surgery Procedure, Year, and Place: 1976 LEFT KNEE [place]. 1980 & 1981 RT KNEE [place]. 1987 & 1991 C-SECTIONS [place]. 2009 LEFT OSTEOTOMY, PLATE INSERTION [place]. hernia repair - Family History Known Family History: Positive: Hypertension, Other - Yes- HLD - Social History Occupation: Employed Full-time Lives: With Family Alcohol Use: Daily Alcohol Amount: 1 DRINK Substance Use Type: None Smoking Status (MU): Never Smoked Tobacco Have You Smoked in the Last Year: No - Immunization History Most Recent Tetanus Shot: unknown needs to be up dated Review of Systems All Other Systems Reviewed And Are Negative: Yes Constitutional: Positive: Negative Skin: Positive: Negative, Other - left index finger 12 mm total laceration gape in 3 mm---ring finger well approximated not bleeding v shaped laceration N/M /C intact distally in both fingers Eyes: Positive: Negative ENT: Positive: Negative Respiratory: Positive: Negative Cardiovascular: Positive: Negative Gastrointestinal: Positive: Negative Genitourinary: Positive: Negative Motor: Positive: Negative Neurovascular: Positive: Negative Musculoskeletal: Positive: Negative Neurological: Positive: Negative Psychological: Positive: Negative Is Patient Immunocompromised?: No Physical Exam Triage Information Reviewed: Yes Completion Of Physical Exam Limited Due To: Altered Mental Status Appearance: Well-Appearing, No Pain Distress, Well-Nourished Vital Signs: Initial Vital Signs Temp 98.8 F 10/20/18 17:55 Pulse 65 10/20/18 17:55 Resp 15 10/20/18 17:55 BP 115/77 10/20/18 17:55 Pulse Ox 96 10/20/18 17:55 Vital Signs Reviewed: Yes Eye Exam: Normal Eyes: Positive: Conjunctiva Clear ENT Exam: Normal ENT: Positive: Normal ENT inspection, Hearing grossly normal. Negative: Trismus , Muffled voice, Hoarse voice Dental Exam: Normal Neck exam: Normal Neck: Positive: Supple, Nontender Respiratory Exam: Normal Respiratory: Positive: Chest non-tender, No respiratory distress, No accessory muscle use Cardiovascular Exam: Normal Cardiovascular: Positive: RRR, Pulses Normal, Brisk Capillary Refill Musculoskeletal Exam: Normal Musculoskeletal: Positive: Strength Intact, ROM Intact, No Edema Neurological Exam: Normal Neurological: Positive: Alert, Muscle Tone Normal Psychological Exam: Normal Skin Exam: Other Skin: Positive: Other - left index finger 12 mm total laceration gape is 3 mm--- ring finger well approximated not bleeding v shaped laceration N/M/C intact distally in both fingers Laceration Repair - Laceration Repair 1 Description: Irregular Laceration Size After Repair: Length (cm) - 1.2, Width (mm) - 1 Modified For Repair: No Type Injection: Digital Anesthesia Used: 0.25% Marcaine Cleansing Completed Via Routine Prep: Yes Irrigation With Pressure Irrigation Device: Yes Closure Method: Single Layer - 8 sutures number 5.0 vicryl 2 Description: Linear Laceration Size After Repair: Length (cm) - 0.6 Modified For Repair: No Closure Material: Skin Adhesive Re-Evaluation - Re-Evaluation First Eval Change: Improved - would well approximated-n/m/c intact after repair Laceration Course/Dx - Course/Dx Course Of Treatment: dressing and splint for protection on left index finger----left ring finger dressing Open to air update tetanus, keflex for 5 days follow with pcp prn - Diagnosis Provider Diagnosis: Laceration of finger of left hand, Suture of skin wound, Glued skin wound, Fpmsybipqt-teqbzqm-cfacvyune (DTP) vaccination Discharge - Sign-Out/Discharge Documenting (check all that apply): Patient Departure All imaging exams completed and their final reports reviewed: No Studies - Discharge Plan Condition: Stable Disposition: HOME Prescriptions: Cephalexin CAP* [Keflex CAP*] 500 mg PO QID 5 Days #19 cap Patient Education Materials: Care For Your Stitches (ED), Finger Laceration (ED ) Referrals: Kianna Mcdaniel MD [Primary Care Provider] - If Needed Additional Instructions: SUTURE REMOVAL IN 10 DAYS - Billing Disposition and Condition Condition: STABLE Disposition: Home
== END 2018-10-20 19:15 | disposition home or self-care (01) ==
LOC: UCEAST 17:42
DX: S61.211A Laceration without foreign body of left index finger without damage to nail, initial encounter (principal); W31.89XA Contact with other specified machinery, initial encounter; Y93.H2 Activity, gardening and landscaping; Y92.017 Garden or yard in single-family (private) house as the place of occurrence of the external cause; Y99.8 Other external cause status; Z88.5 Allergy status to narcotic agent
CPT/HCPCS: 12001; 90471; 90715; 99212; A9270-GY; G0463; J3490

== ENCOUNTER 2018-10-30 07:10 | Emergency (ER) | payer BC ==
[2018-10-30 07:21] VITALS: BP 97/63
--- NOTE | 2018-10-30 07:46 | UC ---
General HPI - HPI Summary HPI Summary: Here for suture removal - cut finger on pluck trimmer. Has kept area clean dry and protected. Sensation intact. Movement intact. No issues. Meds; Reviewed - History of Current Complaint Chief Complaint: UCLaceration Stated Complaint: SUTURE REMOVAL Time Seen by Provider: 10/30/18 07:35 Pain Intensity: 2 - Allergy/Home Medications Allergies/Adverse Reactions: Allergies Allergy/AdvReac Type Severity Reaction Status Date / Time morphine AdvReac Mild Nausea And Verified 10/30/18 07:21 Vomiting fentanyl AdvReac Nausea And Verified 10/30/18 07:21 Vomiting PMH/Surg Hx/FS Hx/Imm Hx Previously Healthy: Yes - Surgical History Surgical History: Yes Surgery Procedure, Year, and Place: 1976 LEFT KNEE [place]. 1980 & 1981 RT KNEE [place]. 1987 & 1991 C-SECTIONS [place]. 2009 LEFT OSTEOTOMY, PLATE INSERTION [place]. hernia repair - Family History Known Family History: Positive: Hypertension, Other - Yes- HLD - Social History Alcohol Use: Daily Alcohol Amount: 1 DRINK Substance Use Type: None Smoking Status (MU): Never Smoked Tobacco Have You Smoked in the Last Year: No - Immunization History Most Recent Tetanus Shot: 2018 Review of Systems All Other Systems Reviewed And Are Negative: Yes Physical Exam Triage Information Reviewed: Yes Vital Signs: Initial Vital Signs Temp 97.8 F 10/30/18 07:16 Pulse 62 10/30/18 07:16 Resp 18 10/30/18 07:16 BP 97/63 10/30/18 07:16 Pulse Ox 99 10/30/18 07:16 Skin Exam: Other - left 4th tip of digit - 8 sutures removed. Scabbed area - clean and dry. No secondary erythema. Minimal edema. Sensation and movement all intact. Course/Dx - Course Course Of Treatment: Here for suture removal 8 sutures removed by myself Area clean and dry. No secondary infection - Diagnoses Provider Diagnosis: Visit for suture removal Discharge - Sign-Out/Discharge Documenting (check all that apply): Patient Departure All imaging exams completed and their final reports reviewed: No Studies - Discharge Plan Condition: Good Disposition: HOME Referrals: Kianna Mcdaniel MD [Primary Care Provider] - Additional Instructions: Keep area clean and dry - use soap and water Keep area covered while being active If area becomes more red, swollen or any drainage recommend re-evaulation with PCP or return to urgent care - Billing Disposition and Condition Condition: GOOD Disposition: Home
== END 2018-10-30 07:50 | disposition home or self-care (01) ==
LOC: UCEAST 07:10
DX: Z48.02 Encounter for removal of sutures (principal); Z88.5 Allergy status to narcotic agent

== ENCOUNTER 2019-07-07 10:14 | Emergency (ER) | payer BC, OTHER ==
[2019-07-07 10:38] VITALS: BP 103/66
--- NOTE | 2019-07-07 10:54 | UC ---
Skin Complaint HPI - HPI Summary HPI Summary: She noticed a painful area on her right buttock this morning. Her looked at it and thought it was a bug bite. - History of Current Complaint Chief Complaint: UCSkin Time Seen by Provider: 07/07/19 10:46 Stated Complaint: SKIN COMPLAINT Hx Obtained From: Patient Onset/Duration: Sudden Onset Skin Exposure Onset/Duration: Hours Ago Timing: Constant Onset Severity: Mild Current Severity: Mild Pain Intensity: 1 Location: Discrete - Right buttock Aggravating Factor(s): Touch Alleviating Factor(s): Nothing Associated Signs & Symptoms: Positive: Negative - Allergy/Home Medications Allergies/Adverse Reactions: Allergies Allergy/AdvReac Type Severity Reaction Status Date / Time morphine AdvReac Mild Nausea And Verified 07/07/19 10:33 Vomiting fentanyl AdvReac Nausea And Verified 07/07/19 10:33 Vomiting Home Medications: Home Medications Lipo Flavanoid 2 tab PO QPM 09/05/16 [History Confirmed 07/07/19] Turmeric 1 cap PO QAM 05/23/17 [History Confirmed 07/07/19] Albuterol HFA INHALER* [Ventolin HFA Inhaler*] 2 puff INH Q4H PRN #1 mdi [Rx Confirmed 07/07/19] [place]-3 Fatty Acids/Fish Oil [[place] 3 1,000 mg Softgel] 1 cap PO DAILY 07/12/18 [History Confirmed 07/07/19] Glucosam/Chondr/Collagn/Hyalur [Glucosamine & Chondroitin Cap] 1 tab PO DAILY [History Confirmed 07/07/19] diphenhydrAMINE HCl [Benadryl Allergy 25 MG CAP] 25 mg PO ONCE 07/07/19 [ History Confirmed 07/07/19] PMH/Surg Hx/FS Hx/Imm Hx Previously Healthy: Yes - Surgical History Surgical History: Yes Surgery Procedure, Year, and Place: 1976 LEFT [place]NEE [place]. 1980 & [place] RT [place]. 1987 & 1991 [place]. 2009 LEFT OSTEOTOMY, PLATE INSERTION [place]. hernia repair - Family History Known Family History: Positive: Hypertension, Other - Yes- HLD - Social History Alcohol Use: Daily Alcohol Amount: 1 DRINK Substance Use Type: None Smoking Status (MU): Never Smoked Tobacco Have You Smoked in the Last Year: No - Immunization History Most Recent Tetanus Shot: 2019 Review of Systems All Other Systems Reviewed And Are Negative: Yes Constitutional: Positive: Negative Skin: Positive: Other - Sore area right buttock Neurovascular: Positive: Negative Musculoskeletal: Positive: Negative Neurological/Mental Status: Positive: Negative Physical Exam - Summary Physical Exam Summary: She is nontoxic in appearance with stable vital signs Triage Information Reviewed: Yes Appearance: Well-Appearing Vital Signs: Initial Vital Signs Temp 98.5 F 07/07/19 10:34 Pulse 68 07/07/19 10:34 Resp 16 07/07/19 10:34 BP 103/66 07/07/19 10:34 Pulse Ox 99 07/07/19 10:34 Vital Signs Reviewed: Yes ENT: Positive: Normal ENT inspection Musculoskeletal Exam: Normal Neurological Exam: Normal Skin Exam: Other - At the inferior crease of her right buttock there is an erythematous area of about 4 cm x 3 cm. It is indurated and tender. There is no fluctuance. There is no lymphadenopathy Course/Dx - Course Course Of Treatment: I'm going to treat her with Keflex. She may need to be drained at some point but it is unclear. - Diagnoses Provider Diagnosis: Skin infection Discharge ED - Sign-Out/Discharge Documenting (check all that apply): Patient Departure All imaging exams completed and their final reports reviewed: No Studies - Discharge Plan Condition: Stable Disposition: HOME Patient Education Materials: Cellulitis (ED) Referrals: Kianna Mcdaniel MD [Primary Care Provider] - - Billing Disposition and Condition Condition: STABLE Disposition: Home
--- NOTE | 2019-07-08 20:35 | UC ---
- Progress Note Progress Note: 59 yr old female dx'd with cellulitis, no improvement in 1 1/2 days with keflex , no fever, chills, ambulatory well, but concerned about further spreading. possible MRSA exposure on vacation- changed to bactrim x 10 day course. Will go to ER if continues to worsen/ fever arises. -Sandhya Rivas PAC Course/Dx - Diagnoses Provider Diagnoses: Skin infection Discharge ED - Sign-Out/Discharge Documenting (check all that apply): Patient Departure All imaging exams completed and their final reports reviewed: No Studies - Discharge Plan Condition: Stable Disposition: HOME Prescriptions: Cephalexin CAP* [Keflex CAP*] 500 mg PO QID #40 cap Sulfamethox/Trimethoprim DS* [Bactrim DS 800/160 TAB*] 1 tab PO BID #20 tab Patient Education Materials: Cellulitis (ED) Referrals: Kianna Mcdaniel MD [Primary Care Provider] - - Billing Disposition and Condition Condition: STABLE Disposition: Home
== END 2019-07-07 11:00 | disposition home or self-care (01) ==
LOC: UCEAST 10:14
DX: L08.9 Local infection of the skin and subcutaneous tissue, unspecified (principal); Z88.5 Allergy status to narcotic agent; Z88.6 Allergy status to analgesic agent
CPT/HCPCS: 99212; G0463